=== PATIENT | male | born 1940 | race Caucasian/White ===

== ENCOUNTER 2023-10-31 10:24 | Emergency (ER) | payer MEDICARE, BC, SELFPAY ==
[2023-10-31 10:26] VITALS: BP 141/75; PULSE 105; RESP 18; TEMP 36.1; O2SAT 96; BMI 38.5
--- NOTE | 2023-10-31 10:40 | CT_ITS ---
STUDY: CT CERVICAL SPINE WITHOUT CONTRAST REASON FOR EXAM: Male, 83 years old. Trauma RADIATION DOSAGE (If Supplied By Facility): CTDIvol = ( 29.57 ) mGy, DLP = ( 677.53 ) mGycm TECHNIQUE: High resolution transaxial imaging was performed without contrast material. Sagittal and coronal images were reconstructed. Individualized dose optimization techniques were used for this CT. COMPARISON: None FINDINGS: Normal craniovertebral junction. There are degenerative changes of the anterior atlantoaxial articulation. Normal odontoid process. There is straightening of the normal cervical lordosis. Normal vertebral bodies and posterior osseous elements. C2-3: Anterior spondylosis. Calcification of the posterior longitudinal ligament causing narrowing of the left cervical canal. C3-4: Moderate degree of disc space narrowing. Spondylosis. Calcification of the left longitudinal ligament with the narrowing of the left cervical canal extending into the left neural foramen causing a moderate to marked degree of left neural foraminal stenosis. C4-5: Mild degree of disc space narrowing. C5-6: Moderate degree of disc space narrowing. Mild central canal stenosis due to posterior osteophyte. C6-7: Moderate degree of disc space narrowing. Spondylosis. C7-T1: Normal endplates. Normal disc height and morphology. Normal central canal and intervertebral neuroforamina. Normal visualized soft tissue structures. CT/Spine Cervical without Contras IMPRESSION: Spinal stenosis and left neural foraminal stenosis at the C2-C3 and C3-C4 levels. Electronically Signed: Andrae Hayden MD at 11:23 EST ,
--- NOTE | 2023-10-31 10:40 | CT_ITS ---
STUDY: CT BRAIN WITHOUT CONTRAST REASON FOR EXAM: Male, 83 years old. Head injury due to a fall. RADIATION DOSAGE (If Supplied By Facility): CTDIvol = ( 44.99 ) mGy, DLP = ( 829.85 ) mGycm TECHNIQUE: Transaxial CT imaging of the brain was performed without administration of intravenous contrast material. Individualized dose optimization techniques were used for this CT. COMPARISON: No relevant priors. FINDINGS: Normal soft tissue structures. Normal calvarium. There is mild cerebral atrophy with widening of the extra-axial spaces and ventricular dilatation. There are areas of decreased attenuation within the white matter tracts of the supratentorial brain, consistent with microvascular disease changes. Normal basal ganglia and thalami. Normal brainstem. Normal cerebellum. There is no intracranial hemorrhage. There are no findings of an acute ischemic infarction. Normal visualized paranasal sinuses. CT/Brain/Head without Contrast IMPRESSION: Chronic involutional changes of the brain. Electronically Signed: Andrae Hayden MD at 11:21 EST ,
--- NOTE | 2023-10-31 10:41 | EX.ED.GENINJ ---
HPI History of Present Illness Chief Complaint: Fall Detail of Chief Complaint: Fall Informant: patient Narrative Narrative: Patient presents to the emergency department after sustaining a fall this morning. Patient states that he was walking down some concrete steps when he fell about 3-4 steps. He did hit his head on a metal banister and sustained a abrasion to the top of the head. Patient also complained of some left shoulder pain and abrasions to his knees. Unsure of his last tetanus. Patient on Eliquis. He has been ambulatory. He had no loss of consciousness. [facility] Medical History (Updated 10/31/23 @ 11:[address] Willis Sneed, DO) Carcinoma Herniated disc HTN (hypertension) Allergy/AdvReac Type Severity Reaction Status Date / Time ampicillin Allergy Mild Rash Verified 10/31/23 10:26 Surgical History (Updated 10/31/23 @ 10:46 by Adelia Ash) History of prostate surgery Social History Smoking Status: Former smoker ROS ROS ED Review of Systems ROS Unobtainable: other Constitutional Constitutional ED: Reports lethargy; Denies chills, fever(s), sweats or weight loss Eyes Eyes: Denies blurry vision, change in vision or diplopia ENT ENT ED: Denies rhinorrhea or sore throat Cardiovascular Cardiovascular: Denies chest pain, orthopnea or racing heartbeat Respiratory/Chest Respiratory/Chest: Denies cough, dyspnea, dyspnea on exertion, orthopnea or sputum Gastrointestinal Gastrointestinal: Denies abdominal pain, diarrhea, nausea or vomiting Genitourinary Genitourinary ED: Denies dysuria, hematuria or urinary frequency Musculoskeletal Musculoskeletal: Denies arthralgias, back pain, myalgias or neck pain Integumentary Reports Abrasions; Denies abscess or rash Neurologic Neurologic: Reports headache(s); Denies weakness Psychiatric Psychiatric: Denies anxiety, depression or suicidal thoughts Endocrine Endocrinology: Denies polydipsia, polyphagia or polyuria Hematologic/Lymphatic Hematologic/Lymphatic: Denies easy bleeding, easy bruising or lymphadenopathy Allergic/Immunologic Allergic/Immunologic ED: Denies mouth swelling, tongue swelling or urticaria EXAM Physical Exam Const Vital Signs: 10/31/23 10:26 10/31/23 10:41 Temperature 97 F L Temperature Source Temporal Pulse Rate 105 H Respiratory Rate 18 Respiratory Effort Normal Respiratory Depth Normal Respiratory Pattern Normal Blood Pressure 141/75 H Blood Pressure Mean 97 Pulse Ox 96 Oxygen Delivery Method Room Air Room Air Positive well nourished and well developed General Appearance ED: well developed and NAD HEENT Reports TM's clear and moist mucous membranes HEENT Narrative: Superficial skin avulsion to the top of the head. No bony step-offs or depressions noted. normocephalic and atraumatic; Negative for trauma or tenderness Tympanic Membrane ED: Yes TM's clear Eyes PERRL and EOMs intact bilaterally General Eye ED: Negative for pale conjunctiva or scleral icterus Neck no lymphadenopathy, supple and no JVD Neck Narrative: Mild diffuse tenderness. No bony step-offs. Good range of motion. General: Negative for tenderness Chest Wall inspection of chest normal and palpation of chest normal Chest: Negative for tenderness Resp normal respiratory effort and clear to auscultation bilaterally Effort and Inspection: Negative for respiratory distress or pain with movement Auscultation: Negative for rhonchi, wheezes or diminished lung sounds Cardio regular rate, regular rhythm, S1 normal heart sound, S2 normal heart sound and no murmurs Peripheral Pulses: pulses 2+ throughout GI normal to inspection, nondistended, normoactive bowel sounds, soft to palpation, non-tender, non-distended and no masses Back/Spine no CVA tenderness and no thoracic nor lumbar tenderness Extremity normal to inspection Extremity Narrative: Left shoulder-no obvious deformity. He has some mild tenderness to the proximal humerus. Neurovascular intact distally. Left knee-superficial skin abrasion over the anterior aspect of the patella without bony tenderness on exam and normal range of motion. Neurovascular intact distally. General Extremety ED: Negative for edema General Extremity: Negative for edema Neuro oriented x3, CN's II-XII intact bilaterally, no sensory deficits noted and gait normal Sensorium / Orientation: awake, alert, oriented to person, oriented to place and oriented to time Motor Exam: strength 5/5 throughout and strength abnormal Psych mental status grossly normal Skin no rashes or lesions noted and no wounds MDM MDM MDM Narrative Medical decision making narrative: Patient presents after a fall with injury to his head as well as left shoulder. Patient had a CT scan of the brain without contrast that showed chronic involutional changes. Patient also had a CT of the C-spine that showed degenerative changes and spinal stenosis. Patient had x-rays of the left shoulder that showed no evidence of fracture. This point he will be given a sling for his left arm. He was given a tetanus booster. Patient will take Tylenol for discomfort. Advised to follow-up with his primary care physician within next 3 to 5 days. Clean dressing applied to his scalp. Radiography Diagnostic Testing: Clinical Impression(s) from Imaging Studies Brain CT 10/31/23 10:40 IMPRESSION: Chronic involutional changes of the brain. Electronically Signed: Andrae Hayden MD at 11:21 EST , Cervical Spine CT 10/31/23 10:40 IMPRESSION: Spinal stenosis and left neural foraminal stenosis at the C2-C3 and C3-C4 levels. Electronically Signed: Andrae Hayden MD at 11:23 EST , Shoulder X-Ray 10/31/23 11:00 IMPRESSION: Normal x-ray examination of the shoulder. Electronically Signed: Andrae Hayden MD at 11:24 EST , Discharge Plan Triage Chief Complaint: Fall ED Provider: Willis Sneed Dx/Rx/DC Orders Clinical Impression: Closed head injury, Abrasion, Fall, Contusion of left shoulder Instructions: ED Contusion, Upper Extremity, ED Mechanical Fall, ED Head Injury (Adult) Primary Care Provider: BLAISE FIERRO MD Referrals: BLAISE FIERRO MD [Other] Activity Restrictions/Additional Instructions: Follow-up with your primary care physician within next 3 to 5 days for repeat exam Disposition Disposition: Home, Self Care Discharge Date/Time: 10/31/23 11:52
--- NOTE | 2023-10-31 11:00 | RAD_ITS ---
STUDY: X-RAY - LEFT SHOULDER REASON FOR EXAM: Male, 83 years old. Injury TECHNIQUE: 2 view(s) of the shoulder. COMPARISON: None. FINDINGS: Normal glenohumeral articulation. Normal acromioclavicular joint. Normal acromion. Normal humeral head and visualized proximal humerus. The soft tissue structures are unremarkable. Normal visualized pulmonary apex. RAD/Shoulder min 2 Views IMPRESSION: Normal x-ray examination of the shoulder. Electronically Signed: Andrae Hayden MD at 11:24 EST ,
[2023-10-31] MEDS: Diphth,Pertuss(Acell),Tet Vac 0.5 ML Vial IM (11:20)
== END 2023-10-31 11:52 | disposition home or self-care (01) ==
PROVIDERS: Emergency Provider Emergency Medicine; Visit Provider Emergency Medicine
DX: S09.90XA Unspecified injury of head, initial encounter (principal); S40.012A Contusion of left shoulder, initial encounter; M25.512 Pain in left shoulder; S40.812A Abrasion of left upper arm, initial encounter; Z87.891 Personal history of nicotine dependence; M48.02 Spinal stenosis, cervical region; S80.211A Abrasion, right knee, initial encounter; S00.91XA Abrasion of unspecified part of head, initial encounter; S80.212A Abrasion, left knee, initial encounter; I10 Essential (primary) hypertension
CPT/HCPCS: 70450; 72125; 73030; 90715; 99283